=== PATIENT | male | born 1970 | race Caucasian/White ===

== ENCOUNTER 2019-07-29 06:26 | Inpatient (IN) ==
--- NOTE | 2019-07-11 13:03 | PAT Medication Instructions ---
Medication Instructions Date of Service July 11, 2019 Home Medications cholecalciferol (vitamin D3) [Vitamin D3] 5,000 unit PO DAILY diclofenac sodium 75 mg PO BID multivitamin 1 cap PO DAILY ASK your surgeon for instructions diclofenac sodium 75 mg PO BID DO NOT take the morning of surgery cholecalciferol (vitamin D3) [Vitamin D3] 5,000 unit PO DAILY multivitamin 1 cap PO DAILY Other Notes If you have any questions please call us at [phone] or [phone] or [phone] or [phone]
--- NOTE | 2019-07-15 10:19 | Anesthesiology Consultation ---
Date of Service July 15, 2019 Assessment & Plan (1) Encounter for pre-operative examination: - Check BSG AM DOS Chart Review Chart Review: Acceptable Risk for Surgery and Patient seen in Pre Admission Testing Teaching & Discussion Pre-Anesthesia Teaching/Discussion Notes: Instructed NPO after midnight before surgery,except medications with 15 cc of water. Medication instructions provided according to the PAT guidelines. History Surgery Operation Date: 07/29/19 11:25 Proposed Procedures p C5-C7 Anterior Cervical Discectomy Fusion, Spinal Cord Monitoring - Oscar Henning DO Height/Weight Height: 5 ft 10 in Weight: 95.8 kg Allergies Allergy/AdvReac Type Severity Reaction Status Date / Time No Known Allergies Allergy Verified 07/05/19 09:41 Medications Home Medications Medication Instructions Recorded Confirmed Last Taken cholecalciferol (vitamin D3) 5,000 unit PO DAILY 07/05/19 07/05/19 Unknown [Vitamin D3] diclofenac sodium 75 mg PO BID 07/05/19 07/05/19 Unknown multivitamin 1 cap PO DAILY 07/05/19 07/05/19 Unknown Past Medical History Medical History Diabetes "borderline"/managing with diet control at this point/hgba1c 6.7% on 07/02/19 Fatty liver follows with GI History of Lyme disease s/p treatment 2017 Sleep apnea CPAP Spinal stenosis Exercise / Class Metabolic Activity II 4-5 Yardwork/Stairs/Walk up hill Past Family History Family History Mother Family history of diabetes mellitus (DM) Father Family history of diabetes mellitus (DM) Past Surgical History Surgical History History of hand surgery LEFT History of hernia surgery History of laminectomy LUMBAR History of laparoscopic cholecystectomy Past Anesthesia History No Family Hx of Anesthesia Complications and Other "Slow to wake" with prior lumbar surgery/no known hx of reintubation. History of PONV No Hx of Motion Sickness and History of PONV (+ nausea) Social History Smoking Status: Former smoker Do You Dip or Chew Tobacco: No (HX, NONE CURRENT) Smoking End Date: QUIT 25 YRS AGO Hx Alcohol Use: Yes Alcohol type: beer, wine and hard liquor alcohol intake frequency: a few times a month Hx Substance Use: No substance use type: does not use Review of Systems Hx of abdominal pain/diarrhea. Per patient, U/S done 06/2019 to evaluate this further was unremarkable and symptoms now resolved. GI monitoring. Patient denies chest pain, shortness of breath, dyspnea on exertion, reflux, cough, wheezing, palpitations. Physical Exam Vital Signs VITALS BP 115/76 P 67 TEMP 97.7 SP02 96%RA RESP 18 PHYSICAL Mildly decreased cervical extension Full TMJ range of motion. TMD 3 finger breaths Mallampati Score 2 Dentition: missing side Lungs: clear throughout to auscultation Cardiac: regular rate and rhythm, no murmurs noted Spine: normal Carotid arteries: negative bruit Extremities: no edema Testing Laboratory Results PT 10.3 Seconds (9.0-12.0) 07/15/19 10:36 INR 1.0 (0.9-1.1) 07/15/19 10:36 APTT 25.4 Seconds (21.0-31.0) 07/15/19 10:36 Urine Color Dark Yellow 07/15/19 10:36 Urine Appearance Clear (Clear) 07/15/19 10:36 Urine pH 5.0 (4.5-7.5) 07/15/19 10:36 Ur Specific [place] 1.027 (1.000-1.030) 07/15/19 10:36 Urine Protein Negative (Negative) 07/15/19 10:36 Urine Glucose (UA) Negative (Negative) 07/15/19 10:36 Urine Ketones Negative (Negative) 07/15/19 10:36 Urine Nitrite Negative (Negative) 07/15/19 10:36 Ur Leukocyte Esterase Negative (Negative) 07/15/19 10:36 Blood Type O Negative 07/15/19 10:36 Antibody Screen NEGATIVE 07/15/19 10:36 07/02/19 SODIUM 143 POTASSIUM 3.9 CHLORIDE 107 CO2 29 BUN 17 CREATININE 1.03 GLUCOSE 149 HGBA1C 6.7% 06/26/19 WBC 8.52 H/H 16.6/47.0 PLT 166 Electrocardiogram Date: 07/15/19 Findings: + NSR @ (71) Chest X-Ray Date: 07/15/19 Findings: + NAD
--- NOTE | 2019-07-15 11:14 | XRay Report ---
XR chest Pre-admission PA/Lat HISTORY: 48 years-old Male pat preoperative exam. No acute chest complaints COMPARISON: None available TECHNIQUE: PA and lateral views of the chest FINDINGS: Cardiomediastinal and hilar silhouettes are within normal limits. No pneumothorax, pleural effusion, focal airspace consolidation or overt pulmonary edema. Bones of the chest appear grossly intact. Chol ecystectomy. IMPRESSION: No acute process. The above report was generated using voice recognition software. It may contain grammatical, syntax o r spelling errors. Electronically signed by: Francisco Martins M.D. 07/15/2019 11:13 AM
[2019-07-15 12:41] LABS: Appearance Urine Clear (Clear); Bilirubin Urine Negative (Negative); Blood Urine Negative (Negative); Color Urine Dark Yellow; Glucose Urine UA Negative (Negative); Ketones Urine Negative (Negative); Leukocyte Esterase Urine Negative (Negative); Nitrite Urine Negative (Negative); Protein Urine Negative (Negative); Specific Gravity Urine 1.027 (1.000-1.030); Urobilinogen Urine Negative (Negative)
[2019-07-15 12:50] LABS: Partial Thromboplastin Ratio 0.9; Partial Thromboplastin Time 25.4 Seconds (21.0-31.0); Prothrombin Time 10.3 Seconds (9.0-12.0)
[~2019-07-29 06:26] MED LIST: ACETAMINOPHEN 500 MG TAB PO SCH; CEFAZOLIN 2000MG 2,000 MG/15 ML SYR IV SCH; CeleBREX 200 MG CAP PO SCH; GABAPENTIN 300 MG CAP PO SCH; LR 15ML/HR IV SCH
[2019-07-29] MEDS ORDERED: BACITRACIN INJ 50,000 UNIT VIAL ONE (06:58)
[2019-07-29] MEDS ORDERED: fentaNYL citrate 100 MCG/2 ML VIAL ONE ×6 (07:17→10:15)
[2019-07-29] MEDS ORDERED: HYDROmorphone INJ 2 MG/ML SYR/VIAL ONE ×2 (07:17→08:45)
[2019-07-29] MEDS ORDERED: MIDAZOLAM HCL 1 MG/ML 2ML VIAL ONE (07:17)
--- NOTE | 2019-07-29 07:29 | History & Physical Bridge Note ---
Date of Service July 29, 2019 History & Physical Bridge Note I have examined the patient, reviewed the History & Physical and in the interval since the performance of the History & Physical I have noted the following changes of clinical significance: no changes noted
--- NOTE | 2019-07-29 07:30 | History & Physical Report ---
Date of Service July 29, 2019 Assessment & Plan (1) Cervical stenosis of spinal canal: Anterior cervical discectomy and fusion C5-C7 Present on Admission?: Yes History of Present Illness Chief Complaint: Neck and arm pain Primary Care Provider: Camelia Wesley This is a 48-year-old male who presents with chronic persistent neck and arm pain. Failing extensive course of nonoperative care is here for surgical invention. Allergies Allergy/AdvReac Type Severity Reaction Status Date / Time No Known Allergies Allergy Verified 07/29/19 06:48 Home Medications Home Medications Medication Instructions Recorded Confirmed Type cholecalciferol (vitamin D3) 5,000 unit PO DAILY 07/05/19 07/29/19 History [Vitamin D3] diclofenac sodium 75 mg PO BID 07/05/19 07/29/19 History multivitamin 1 cap PO DAILY 07/05/19 07/29/19 History Past Med/Surg History Medical History Diabetes "borderline"/managing with diet control at this point/hgba1c 6.7% on 07/02/19 Fatty liver follows with GI History of Lyme disease s/p treatment 2017 Sleep apnea CPAP Spinal stenosis Surgical History History of hand surgery LEFT History of hernia surgery History of laminectomy LUMBAR History of laparoscopic cholecystectomy Family History Mother Family history of diabetes mellitus (DM) Father Family history of diabetes mellitus (DM) Social History Preferred Language: Lebanese Communication Ability: Effective [employer] Counter Assistant Required: No Beliefs That Will Affect Care: Rastafarian Rastafarian Beliefs: VOODOO Current Living Situation: Spouse Other Information That Helps Us Care for You: No Feels Safe at Home: Yes Smoking Status: Former smoker Do You Dip or Chew Tobacco: No (HX, NONE CURRENT) ; Smoking End Date: QUIT 25 YRS AGO ; Hx Alcohol Use: Yes Alcohol type: beer, wine and hard liquor Hx Substance Use: No Physical Exam Physical Exam: Patient is alert and oriented neurologically intact. Results & Data Vital Signs (Past 12 Hours) Vital Signs Temp Pulse Resp BP Pulse Ox 07/29/19 06:51 36.9 C 87 20 138/84 95
[2019-07-29] MEDS ORDERED: MEPERIDINE HCL 25 MG/ML CARP IV PRN (07:33)
[2019-07-29] MEDS ORDERED: ONDANSETRON INJ 2 MG/ML 2 ML VIAL IV PRN ×2 (07:33→11:05)
[2019-07-29] MEDS ORDERED: HYDROmorphone INJ 1 MG/ML SYRINGE IV PRN (07:33)
[2019-07-29] MEDS ORDERED: ATROPINE SULFATE 0.1 MG/ML 10ML SYR IV PRN (07:33)
[2019-07-29] MEDS ORDERED: PHENYLEPHRINE 100MCG/ML 5ML SYR IV PRN (07:33)
[2019-07-29] MEDS ORDERED: LABETALOL HCL IV 5 MG/ML 20ML IV PRN (07:33)
[2019-07-29] MEDS ORDERED: ePHEDrine sulfate 50 MG/ML AMP IV PRN (07:33)
[2019-07-29] MEDS ORDERED: DEXAMETHASONE SOD INJ 4 MG/ML VIAL ONE (08:46)
[2019-07-29] MEDS ORDERED: ONDANSETRON INJ 2 MG/ML 2 ML VIAL ONE (08:46)
[2019-07-29] MEDS ORDERED: NEOSTIGMINE METHYLSULFATE 1 MG/ML 10ML VIAL ONE (08:46)
[2019-07-29] MEDS ORDERED: GLYCOPYRROLATE 0.2 MG/ML VIAL ONE (08:46)
[2019-07-29] MEDS ORDERED: ROCURONIUM BROMIDE 10 MG/ML 5 ML VIAL ONE (08:46)
[2019-07-29] MEDS ORDERED: PHENYLEPHRINE 100MCG/ML 5ML SYR ONE (08:46)
[2019-07-29] MEDS ORDERED: raNITIdine HCl 25 MG/ML VIAL IV ONE (08:46)
[2019-07-29] MEDS ORDERED: METOCLOPRAMIDE HCL INJ 5 MG/ML 2 ML VIAL ONE (08:46)
[2019-07-29] MEDS ORDERED: PROPOFOL IV EMULSION 10 MG/ML 20 ML VIAL IV ONE (08:46)
[2019-07-29] MEDS ORDERED: LIDOCAINE HCL 2% 2 ML VIAL/AMP(20MG/ML) INFIL ONE (08:46)
[2019-07-29] MEDS ORDERED: FLOSEAL HEMOSTATIC MATRIX 10ML TOP ONE (09:13)
--- NOTE | 2019-07-29 09:21 | Operative Report ---
Post Operative Report Pre & Post Diagnosis Operation Date: 07/29/19 07:45 Pre-Op Diagnosis: Spinal stenosis with radiculopathy Post-Op Diagnosis: Same I identified the patient and participated in the time-out.: Yes Procedure Operation Date: 07/29/19 07:45 Actual Procedures #1 anterior cervical discectomy with bilateral foraminotomies C5-6 C6-7. #2 an terior cervical arthrodesis C5-6 C6-7. #3 placement of Spira cage filled with DBM 8 mm in height at C5-6 and 9 mm in height at C6-7. #4 application of trejo plate and screws from C5-6 to C6-7. Surgeon Oscar Henning, DO [employer] Merlin Elizondo Estimated Blood Loss 20 Findings Consistent with Post-Op Diagnosis Specimens None Indications This is a [id number] male who presents with above-mentioned diagnosis after failing extensive course of nonoperative care is here for surgical invention. Description of Procedure Patient was met with identified informed consent obtained. 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 All bony prominences well-padded eyes inspected to ensure no external pressure placed upon up at this point the anterior cervical spine was prepped and draped in normal sterile fashion. With assistance of fluoroscopy notify the C6 vertebral level and a transverse incision was placed along the right anterior aspect of the cervical spine overlying the region. Sharp dissection with assistance of bipolar cautery performed down to and exposing the anterior cervical spine from C5-C7. [address]. Performed a complete discectomy of C5-6 out to the uncovertebral joints bilaterally. I then use [place] distracting pins removed all posterior annular fibers longitudinal ligament bilateral foraminotomies performed. Endplates burred to subcortical bleeding bone and an 8 mm Spira cage filled with DBM bone graft tapped position. Then proceeded to see 6 7. Again complete discectomy performed out to the operative joints bilaterally. [place] distracting pins again utilized. Removed all posterior annular fibers longitudinal ligament bilateral foraminotomies performed. Endplates burred to subcortical bleeding bone and a 9 mm Spira cage filled with DBM tapped position. Distraction apparatus was removed all anterior osteophytes producing with a cortical surface and a trejo plate and screws applied with the assistance of fluoroscopy. Incision was then copiously irrigated explored to ensure no damage to surrounding structures remaining bleeding. 10 round NICOLE drain inserted. The incision was then closed with 2 Vicryl in the fascia 4-0 Monocryl for final skin closure Steri-Strips dressings placed. Patient will continue to PACU stable addition. Please note Merlin Elizondo was present at the entire procedure involved the patient positioning complex portions of the surgery and final skin closure. Lastly spinal cord monitoring was utilized that the procedure no changes noted. I attest to the content of the Intraoperative Record and any orders documented therein. Any exceptions are noted below.
--- NOTE | 2019-07-29 09:43 | Fluoroscopy Report ---
FL cervical 2-3V CLINICAL HISTORY: ACDF C5-C7 COMPARISON STUDY: None. FLUOROSCOPY TIME: 9 seconds. FINDINGS: 2 fluoroscopic spot images of the cervical spine demonstrate anterior cervical discectomy a nd fusion from C5 through C7. The heart appears intact. IMPRESSION: Fluoroscopy provided for C5-C7 ACDF. ACT 112: Negative or not required by law. Electronically signed by: Tad Barry M.D. 07/29/2019 9:41 AM
[2019-07-29] MEDS ORDERED: LABETALOL HCL IV 5 MG/ML 20ML IV ONE (09:47)
[2019-07-29] MEDS ORDERED: PROPOFOL IV EMULSION 10 MG/ML 100 ML VIAL IV ONE (09:48)
[2019-07-29] MEDS: fentaNYL citrate 100 MCG/2 ML VIAL IV PRN ×2 (10:16→10:25)
--- NOTE | 2019-07-29 10:50 | Anesthesiology Progress Note ---
Date of Service July 29, 2019 Anesthesia Post Procedure Vital Signs Vital Signs: Temp Pulse Pulse Resp BP Pulse Ox 07/29/19 10:40 37.2 C 65 12 132/72 97 07/29/19 10:30 62 12 127/75 97 07/29/19 10:20 63 13 135/81 98 07/29/19 10:10 67 12 137/90 98 07/29/19 10:00 61 12 121/83 100 07/29/19 09:50 69 12 153/94 H 99 07/29/19 09:40 36.0 C L 71 16 152/105 H 100 07/29/19 06:51 36.9 C 87 20 138/84 95 Pain Intensity Posterior Neck: Pain Intensity: 2 Neck: Pain Intensity: 2 Transfer of Care Handoff Completed per policy Notes Mental Status: alert / awake / arousable Patient Amnestic to Procedure: Yes Nausea / Vomiting: adequately controlled Pain: adequately controlled Airway Patency, RR, SpO2: stable & adequate BP & HR: stable & adequate Hydration State: stable & adequate Anesthetic Complications: no major complications apparent and Pt Satisfied with anesthetic care Notes: The patient is awake and stable. His neck does not appear swollen.
[2019-07-29] MEDS ORDERED: RACEPINEPHRINE 2.25% NEBU SOLN 0.5 ML VIAL INH PRN (11:05)
[2019-07-29] MEDS ORDERED: DO NOT ADMINISTER PNEUMOCOCCAL VACCINE PRN (11:05)
[2019-07-29] MEDS ORDERED: HYDROmorphone INJ 0.5 MG/0.5 ML SYR IV PRN (11:05)
[2019-07-29] MEDS ORDERED: MAGNESIUM HYDROXIDE SUSP 30 ML UDC PO PRN (11:05)
[2019-07-29] MEDS ORDERED: ONDANSETRON 4 MG OD TAB PO PRN (11:05)
[2019-07-29] MEDS ORDERED: DEXAMETHASONE SOD PHOSPHATE 8 MG in SYRINGE 0 ML IV PRN (11:05)
[2019-07-29] MEDS ORDERED: LORazepam 0.5 MG/1 ML VIAL IV PRN (11:05)
[2019-07-29] MEDS ORDERED: LORazepam 0.5 MG TAB PO PRN (11:05)
[2019-07-29] MEDS ORDERED: NALOXONE HCL 0.4 MG/1 ML VIAL/CARP IV PRN (11:05)
[2019-07-29] MEDS ORDERED: DO NOT ADMINISTER FLU VACCINE PRN (11:05)
[2019-07-29] MEDS ORDERED: TRAMADOL HCL 50 MG TABLET PO PRN (11:05)
[2019-07-29] MEDS ORDERED: SOD PHOSPHATE/SOD BIPHOSPHATE ENEMA 132 ML BTL PR PRN (11:05)
[2019-07-29] MEDS ORDERED: FAMOTIDINE 20 MG TAB PO PRN (11:05)
[2019-07-29] MEDS ORDERED: ALUMINUM/MAGNESIUM SUSP 30 ML UDC PO PRN (11:05)
[2019-07-29] MEDS ORDERED: METOCLOPRAMIDE HCL INJ 5 MG/ML 2 ML VIAL IV PRN (11:05)
[2019-07-29] MEDS ORDERED: PROMETHAZINE HCL 12.5 MG in SODIUM CHLORIDE 0.9% 50 ML IV PRN (11:05)
[2019-07-29] MEDS: OXYCODONE HCL IR 5 MG TAB (IMMEDIATE RELEASE) PO PRN ×3 (13:33→23:45)
[2019-07-29] MEDS ORDERED: LARYING-O-JET KIT (LTA) ONE (13:45)
[2019-07-29] MEDS: LACTATED RINGER'S 1,000 ML IV SCH ×2 (14:00→23:35)
[2019-07-29] MEDS ORDERED: COUGH DROP (SUGAR FREE) LOZ 24 LOZ/1 BOX BUCCAL PRN (15:21)
[2019-07-29] MEDS ORDERED: ACETAMINOPHEN 1,000 MG/100 ML VIAL IV PRN (15:21)
[2019-07-29] MEDS ORDERED: COUGH DROP (SUGAR FREE) LOZ 24 LOZ/1 BOX BUCCAL ONE (15:30)
[2019-07-29] MEDS ORDERED: ACETAMINOPHEN 500 MG TAB PO PRN (15:30)
[2019-07-29] MEDS: CEFAZOLIN 2000MG 2,000 MG/15 ML SYR IV SCH ×2 (16:13→23:35)
[2019-07-29] MEDS ORDERED: DOCUSATE SODIUM/SENNA 50/8.6MG TAB PO SCH (21:00)
--- NOTE | 2019-07-30 08:02 | Anesthesiology Progress Note ---
Date of Service July 30, 2019 Anesthesia Post Procedure Vital Signs Vital Signs: Temp Pulse Pulse Resp BP Pulse Ox Pulse Ox 07/30/19 07:24 36.7 C 86 16 122/73 92 07/30/19 05:55 36.8 C 81 14 113/75 96 07/30/19 03:55 36.8 C 85 14 121/75 96 07/30/19 03:30 88 14 98 07/30/19 01:55 36.4 C L 90 14 115/72 95 07/30/19 00:07 97 H 18 94 07/29/19 23:55 36.6 C 94 H 14 118/73 98 07/29/19 23:45 94 07/29/19 21:55 36.7 C 95 H 16 128/77 96 07/29/19 19:55 36.7 C 95 H 16 128/74 95 07/29/19 19:15 90 16 95 07/29/19 17:55 37 C 95 H 16 129/69 95 07/29/19 15:55 36.7 C 96 H 16 124/77 96 07/29/19 15:19 94 H 16 95 07/29/19 13:55 36.4 C L 91 H 14 122/80 97 97 07/29/19 12:55 36.6 C 86 16 118/73 98 07/29/19 11:52 36.5 C 78 18 123/76 97 07/29/19 11:30 80 16 96 07/29/19 11:24 36.5 C 81 18 122/80 96 07/29/19 10:55 36.7 C 67 16 137/83 93 07/29/19 10:40 37.2 C 65 12 132/72 97 07/29/19 10:30 62 12 127/75 97 07/29/19 10:20 63 13 135/81 98 07/29/19 10:10 67 12 137/90 98 07/29/19 10:00 61 12 121/83 100 07/29/19 09:50 69 12 153/94 H 99 07/29/19 09:40 36.0 C L 71 16 152/105 H 100 Pulse Ox 07/30/19 07:24 07/30/19 05:55 07/30/19 03:55 07/30/19 03:30 07/30/19 01:55 07/30/19 00:07 07/29/19 23:55 07/29/19 23:45 07/29/19 21:55 07/29/19 19:55 07/29/19 19:15 07/29/19 17:55 07/29/19 15:55 07/29/19 15:19 07/29/19 13:55 07/29/19 12:55 07/29/19 11:52 07/29/19 11:30 07/29/19 11:24 07/29/19 10:55 93 07/29/19 10:40 07/29/19 10:30 07/29/19 10:20 07/29/19 10:10 07/29/19 10:00 07/29/19 09:50 07/29/19 09:40 Pain Intensity Posterior Neck: Pain Intensity: 2 Neck: Pain Intensity: 9 Left Shoulder: Pain Intensity: 0 Notes Mental Status: alert / awake / arousable and participated in evaluation Patient Amnestic to Procedure: Yes Nausea / Vomiting: adequately controlled Pain: adequately controlled Airway Patency, RR, SpO2: stable & adequate BP & HR: stable & adequate Hydration State: stable & adequate Anesthetic Complications: no major complications apparent and Pt Satisfied with anesthetic care
[2019-07-30] MEDS: POLYETHYLENE (MIRALAX) 17 GM PACK PO SCH ×2 (08:26→13:01)
[2019-07-30] MEDS ORDERED: MULTIVITAMIN TAB PO SCH (09:00)
[2019-07-30] MEDS ORDERED: CHOLECALCIFEROL 1,000 UNITS TAB PO SCH (09:00)
[2019-07-30] MEDS ORDERED: POLYETHYLENE (MIRALAX) 17 GM PACK PO SCH (09:22)
[2019-07-30] MEDS: LACTATED RINGER'S 1,000 ML IV SCH (09:24)
--- NOTE | 2019-07-30 13:21 | Discharge Summary ---
Date of Service July 30, 2019 Admission HPI Per Admitting Provider This is a 48-year-old male who presents with chronic persistent neck and arm pain. Failing extensive course of nonoperative care is here for surgical invention. Principal Diagnosis Cervical spinal stenosis with radiculopathy Discharge Data Allergies Allergy/AdvReac Type Severity Reaction Status Date / Time No Known Allergies Allergy Verified 07/29/19 06:48 Procedures Performed Operation Date: 07/29/19 07:45 Actual Procedures p C5-C7 Anterior Cervical Discectomy Fusion, Spinal Cord Monitoring(Not Applicable) - Oscar Henning DO Ordered Studies 07/29/19 07:45 FL cervical 2-3V Routine FL fluoroscopy <1hr Routine Hospital Course (1) Cervical stenosis of spinal canal: Patient underwent anterior cervical discectomy and fusion troll as well as taken orthopedic for possibly. Postop day 1 he was swallowing well had excellent strength testing NICOLE drain decreased appropriately. Subsequent discharge home. Discharge orders instructions can be found the chart for further review. Total Time Total Time Spent Total Time Spent (In Minutes): 20 minutes Discharge Plan Discharge Items Patient Disposition: Home - Self-Care Reason For Visit: Spinal Stenosis, Cervical Region Discharge Diagnosis: Cervical spinal stenosis with radiculopathy Activity: Per Instructions section Non-emergency contact: Primary Care Provider Call non-emergency contact if: you have any medication questions Follow-up/Referrals: Camelia Wesley M.D. [Primary Care Provider] - Diet: Regular Addtl Attending Provider Instructions: ACTIVITY RECOMMENDATIONS: SELF CARE INSTRUCTIONS AFTER CERVICAL FUSIONS 1. No smoking. Smoking drastically decreases the chance of a solid fusion. 2. No bending, lifting more than 5 pounds, or twisting (roll like a log when turning in bed). 3. You may shower 3 days after surgery. Thoroughly dry wound. Do not soak in the tub. 4. Cervical collar: Must be worn at all times including sleeping. You may remove the brace only to bath, eat and if you are sitting in a recliner. 5. Please walk as much as you can for exercise. Gradually increase the distance that you walk as your endurance increases. SPECIAL CARE INSTRUCTIONS: VERY IMPORTANT TO READ AND REVIEW A. Do not take any anti-inflammatory medications (i.e. Indocin, Advil, Aspirin, Naprosyn, Aleve, Motrin, etc.) as these may inhibit the chance of a solid fusion. Tylenol is okay to take. B. Your surgical incision has been closed with a cosmetic suture under the skin that will dissolve in about 6 weeks. In 14 days, you can use a pair of clean scissors and cut the suture that is left outside of the skin at the ends of your incision. C. Complications are uncommon, but please contact us if you have any signs or symptoms of: 1. wound infection (fever higher than 102.5 degrees F, redness, separation of wound, drainage, or increasing pain from the incision) 2. blood clots in legs (pain, swelling, redness and warmth in legs) 3. urinary tract infection (fever higher than 102.5 degrees, burning upon urination or increased frequency of urination) 4. nerve problems (inability to walk on your toes or heels, numbness, loss of bowel or bladder control) 5. any other symptoms that concern you. D. Please call the office at if you have any concerns or questions about your operation or recovery. MANAGING PAIN AFTER SPINAL SURGERY 1. Narcotic medication is intended for short-term use and will be provided for surgical pain. Surgical pain usually lasts for a period of 4-6 weeks. Narcotic medication includes Percocet, Vicodin, Darvocet, Tylenol #3 or Lortab. 2. Longer-term pain is more appropriately treated with non-narcotic medication such as Tylenol ES. 3. Muscle spasm is not appropriately treated with narcotics. Muscle relaxers such as Soma, Flexeril or Skelaxin can be used along with Tylenol ES. 4. Remember that we all live with some "aches and pains". This is not unusual or uncommon after an injury or as we get older. 5. We will provide appropriate medication within the normal guidelines of their prescribed use. We will also be very cautious and aware of potential abuse and extended duration of patients' medication needs. 6. Please allow 2-3 days to process refills. Prescriptions will not be mailed but must be picked up at the office. FOLLOW UP VISIT: Keep your scheduled follow-up appointment. Any questions, please call the office at . Pending Studies at Discharge: No Stand-Alone Forms: [employer], Smoking Cessation Medications and DC Order Prescriptions: New tramadol 50 mg tablet 50 mg PO Q6H PRN (Reason: pain, moderate) Qty: 15 RF: 0 oxycodone 5 mg tablet 5 mg PO Q6H PRN (Reason: pain, severe) Qty: 15 RF: 0 Continued multivitamin Capsule 1 cap PO DAILY RF: 0 Vitamin D3 4,000 unit Capsule 5,000 unit PO DAILY RF: 0 Discontinued diclofenac sodium 75 mg Tablet,Delayed Release (Dr/Ec) 75 mg PO BID RF: 0 Discharge Orders: Discharge Order (Routine); Ordered 07/30/19 Ordered By: Oscar Henning Admission Data Admit Date/Time: 07/29/19 10:11 Attending Provider: Oscar Henning Admit Provider: Oscar Henning Primary Care Provider: Camelia Wesley
[2019-07-31] MEDS ORDERED: bisacodyL 10 MG SUPP PR PRN (09:22)
== END 2019-07-30 14:29 | disposition home or self-care (01) | DRG 455 ==
LOC: 3E 06:26 → ASU 06:26 → OBSVTOIN 10:11